=== PATIENT | male | born 1975 ===

== ENCOUNTER 2017-02-06 16:26 | Emergency (ER) | payer MEDICARE ==
[2017-02-06 16:50] VITALS: BP 127/78; PULSE 98; O2SAT 94
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
[2017-02-06 17:31] LABS: BASOPHIL % 0.4 % (0.0-0.4); Eosinophil % 5.1 % (0.00-5.0); Granulocytes % 59.7 % (36.0-66.0); Lymphocytes % 22.9 % (24.0-44.0); Mean Cell Volume 85.3 fl (78-100); Mean Corpuscular Hemoglobin 27.5 pg (26-32); Mean Platelet Volume 9.9 fl (6-9.5); Monocytes % 11.9 % (0.0-12.0); Platelet Count 350 K/mm3 (150-450); Red Blood Count 5.05 M/mm3 (4.1-5.6); Red Cell Distribution Width 14.2 % (11.5-14.0); White Blood Count 8.4 K/mm3 (4.0-10.5)
[2017-02-06 17:43] LABS: INR 1.16 (0.8-3.0); PROTIME 13.1 SECONDS (8.83-12.87)
[2017-02-06 17:47] LABS: ANION GAP 10.3 MEQ/L (5-15); BLOOD UREA NITROGEN 7 mg/dL (9-20); CHLORIDE 106 mEq/L (98-107); Carbon Dioxide 31.2 mEq/L (21-32); Glucose 122 MG/DL (70-110); SODIUM 144 mEq/L (136-145)
== END 2017-02-06 18:00 | disposition home or self-care (01) ==
LOC: ED 16:26
DX: K64.9 Unspecified hemorrhoids (principal); J20.9 Acute bronchitis, unspecified; K62.5 Hemorrhage of anus and rectum
CPT/HCPCS: 36415; 80048; 82272; 85025; 85610; 99282